=== PATIENT | male | born 1960 | race Caucasian/White ===

== ENCOUNTER 2023-03-03 13:05 | Inpatient (IN) | payer MEDICAID ==
[~2023-03-03] VITALS: Ht 167.6 cm; Wt 62.4 kg
[2023-03-03 23:00] VITALS: BP 119/69; PULSE 99; RESP 18; TEMP 98; O2SAT 97
[2023-03-04] MEDS ORDERED: PNEUMOCOCCAL VACCINE POLYVALENT 0.5 ML SYRINGE [PPSV23] IM. ONE (03:45)
[2023-03-04 08:22] VITALS: BP 116/72; PULSE 93; RESP 17; TEMP 97.6; O2SAT 98
[2023-03-04] MEDS: THIAMINE 100 MG TABLET PO SCH ×2 (09:57→18:01)
[2023-03-04] MEDS: MULTIVITAMINS WITH MINERALS, THERAPEUTIC TABLET PO SCH (09:57)
[2023-03-04] MEDS: LevETIRAcetam 500 MG TABLET PO SCH ×2 (09:57→20:46)
[2023-03-04] MEDS ORDERED: ACETAMINOPHEN 325 MG TABLET PO PRN (11:30)
[2023-03-04] MEDS ORDERED: MAG HYDROX/AL HYDROX/SIMETH ES 30 ML SUSPENSION UDCUP PO PRN (11:30)
[2023-03-04] MEDS ORDERED: MAGNESIUM HYDROXIDE SUSPENSION 30 ML UDCUP PO PRN (11:30)
[2023-03-04] MEDS ORDERED: TUBERCULIN, PURIFIED PROTEIN DERIVATIVE 5 TU/0.1 ML SYRINGE ID ONE (11:30)
[2023-03-04] MEDS ORDERED: LOPERAMIDE HCL 2 MG CAPSULE PO PRN (11:30)
[2023-03-04] MEDS ORDERED: PROMETHAZINE HCL 25 MG TABLET PO PRN (11:30)
[2023-03-04] MEDS: OLANZapine 5 MG RAPDIS TABLET PO PRN (18:01)
[2023-03-04] MEDS: OLANZapine 5 MG RAPDIS TABLET PO SCH (20:46)
[2023-03-04] MEDS: MIRTAZAPINE 15 MG TABLET PO SCH (20:47)
[2023-03-04] MEDS: MELATONIN 5 MG TABLET PO SCH (20:47)
[2023-03-04 21:02] VITALS: BP 132/75; PULSE 100; RESP 18; TEMP 98.7; O2SAT 95
[2023-03-04 21:05] VITALS: TEMP 98.7
[2023-03-04 22:05] VITALS: BP 132/75; PULSE 100; RESP 18; TEMP 98.7; O2SAT 95
[2023-03-05 08:09] VITALS: BP 106/64; PULSE 66; RESP 17; TEMP 98.3; O2SAT 98
[2023-03-05 08:15] VITALS: BP 125/76; PULSE 95; RESP 15; TEMP 98.5; O2SAT 96
[2023-03-05 08:53] LABS: BASOPHILS % (AUTO) 0.2 % (0.0-2.0); EOSINOPHILS % (AUTO) 2.1 % (1.0-6.0); HEMATOCRIT 38.7 % (41-53); LYMPHOCYTES # (AUTO) 1.4 K/uL (1.0-4.8); LYMPHOCYTES % (AUTO) 33.3 % (22.0-44.0); MEAN CORPUSCULAR HEMOGLOBIN 32.7 pg (26.0-34.0); MEAN CORPUSCULAR HGB CONC 33.5 G/dL (31.0-37.0); MEAN CORPUSCULAR VOLUME 98 fL (80-100); MONOCYTES # (AUTO) 0.6 K/uL (0.1-1.0); MONOCYTES % (AUTO) 15.4 % (2.0-9.0); NEUTROPHILS # (AUTO) 2.1 K/uL (1.8-7.7); PLATELET COUNT (AUTO) 214 K/uL (150-450); RED BLOOD CELL COUNT(AUTO) 3.96 MIL/uL (4.50-5.90); RED CELL DISTRIBUTION WIDTH 14.2 % (11.5-14.5); WHITE BLOOD COUNT (AUTO) 4.2 K/uL (4.5-11.0)
[2023-03-05] MEDS ORDERED: MULTIVITAMINS WITH MINERALS, THERAPEUTIC TABLET PO SCH (09:00)
[2023-03-05 09:03] LABS: HEMOGLOBIN A1C 5.3 % (3.8-5.6)
[2023-03-05 09:24] LABS: ALANINE AMINOTRANSFERASE 71 U/L (12-78); ALBUMIN 2.6 g/dL (3.4-5.0); ALKALINE PHOSPHATASE 95 U/L (46-116); ANION GAP 6 mmol/L (8-16); ASPARTATE AMINOTRANSFERASE 65 U/L (15-37); BILIRUBIN,TOTAL 0.3 mg/dL (0.1-1.0); CALCIUM, TOTAL 8.4 mg/dL (8.8-10.5); CARBON DIOXIDE 28 mmol/L (22-29); CHLORIDE 104 mmol/L (98-107); CHOL/HDL RATIO 2.1 (4.2-7.3); CHOLESTEROL 127 mg/dL (131-200); CREATININE 0.46 mg/dL (0.60-1.30); FREE T4 (FREE THYROXINE) 0.99 ng/dL (0.76-1.46); GLOMERULAR FILTR. RATE CALC > 60 mL/min (>60); GLUCOSE,RANDOM 108 mg/dL (70-110); HDL CHOLESTEROL 60 mg/dL (40-60); LDL CHOL (CALC.) 57 mg/dL (0-130); POTASSIUM 3.8 mmol/L (3.5-5.1); SODIUM SERUM 138 mmol/L (136-145); THYROID STIMULATING HORMONE 4.18 uIU/mL (0.36-3.74); TOTAL PROTEIN, SERUM 6.6 g/dL (6.4-8.2); TRIGLYCERIDES 51 mg/dL (15-150); UREA NITROGEN, BLOOD 20 mg/dL (7-18)
[2023-03-05] MEDS: NALTREXONE HCL 50 MG TABLET PO SCH (09:59)
[2023-03-05] MEDS: THIAMINE 100 MG TABLET PO SCH ×3 (09:59→17:09)
[2023-03-05] MEDS: MULTIVITAMINS WITH MINERALS, THERAPEUTIC TABLET PO SCH (09:59)
[2023-03-05] MEDS: LevETIRAcetam 500 MG TABLET PO SCH ×2 (10:00→20:41)
[2023-03-05] MEDS: OMEGA-3/DHA/EPA/FISH OIL 1,000 MG CAPSULE PO SCH (10:00)
[2023-03-05] MEDS: FOLIC ACID 1 MG TABLET PO SCH (10:00)
[2023-03-05] MEDS: LORazepam 2 MG TABLET PO PRN (17:09)
[2023-03-05 20:05] VITALS: BP 124/82; PULSE 86; RESP 18; TEMP 97.6; O2SAT 97
[2023-03-05] MEDS: MELATONIN 5 MG TABLET PO SCH (20:41)
[2023-03-05] MEDS: MIRTAZAPINE 15 MG TABLET PO SCH (20:42)
[2023-03-05] MEDS: OLANZapine 5 MG RAPDIS TABLET PO SCH (20:42)
[2023-03-05] MEDS: ZOLPIDEM TARTRATE 10 MG TABLET PO PRN (20:43)
[2023-03-06 08:15] VITALS: BP 88/59; PULSE 66; RESP 18; TEMP 98; O2SAT 98
[2023-03-06] MEDS: OMEGA-3/DHA/EPA/FISH OIL 1,000 MG CAPSULE PO SCH (08:15)
[2023-03-06] MEDS: FOLIC ACID 1 MG TABLET PO SCH (08:16)
[2023-03-06] MEDS: LevETIRAcetam 500 MG TABLET PO SCH ×2 (08:16→20:09)
[2023-03-06] MEDS: MULTIVITAMINS WITH MINERALS, THERAPEUTIC TABLET PO SCH (08:16)
[2023-03-06] MEDS: THIAMINE 100 MG TABLET PO SCH ×2 (08:16→16:52)
[2023-03-06] MEDS: NALTREXONE HCL 50 MG TABLET PO SCH (08:16)
[2023-03-06] MEDS: HydrOXYzine PAMOATE 50 MG CAPSULE PO PRN (16:53)
[2023-03-06] MEDS: OLANZapine 5 MG RAPDIS TABLET PO PRN (16:53)
[2023-03-06] MEDS: OLANZapine 5 MG RAPDIS TABLET PO SCH (20:09)
[2023-03-06] MEDS: MIRTAZAPINE 15 MG TABLET PO SCH (20:09)
[2023-03-06 20:12] VITALS: BP 120/81; PULSE 88; RESP 18; TEMP 97.6; O2SAT 100
[2023-03-06] MEDS: MELATONIN 5 MG TABLET PO SCH (20:18)
[2023-03-06] MEDS: LORazepam 2 MG TABLET PO PRN (20:18)
[2023-03-07] MEDS: THIAMINE 100 MG TABLET PO SCH ×2 (08:06→16:21)
[2023-03-07] MEDS: MULTIVITAMINS WITH MINERALS, THERAPEUTIC TABLET PO SCH (08:06)
[2023-03-07] MEDS: NALTREXONE HCL 50 MG TABLET PO SCH (08:06)
[2023-03-07] MEDS: OMEGA-3/DHA/EPA/FISH OIL 1,000 MG CAPSULE PO SCH (08:06)
[2023-03-07] MEDS: FOLIC ACID 1 MG TABLET PO SCH (08:06)
[2023-03-07] MEDS: LevETIRAcetam 500 MG TABLET PO SCH ×2 (08:06→20:43)
[2023-03-07 08:24] VITALS: BP 116/78; PULSE 86; RESP 16; TEMP 97.8; O2SAT 99
[2023-03-07] MEDS: LORazepam 2 MG TABLET PO PRN (16:21)
[2023-03-07 20:14] VITALS: BP 123/75; PULSE 90; RESP 18; TEMP 98.4; O2SAT 100
[2023-03-07] MEDS: MELATONIN 5 MG TABLET PO SCH (20:43)
[2023-03-07] MEDS: MIRTAZAPINE 15 MG TABLET PO SCH (20:43)
[2023-03-07] MEDS: OLANZapine 5 MG RAPDIS TABLET PO SCH (20:43)
[2023-03-07] MEDS: ZOLPIDEM TARTRATE 10 MG TABLET PO PRN (20:43)
[2023-03-08 08:12] VITALS: BP 124/60; PULSE 70; RESP 18; TEMP 97.6; O2SAT 92
[2023-03-08] MEDS: MULTIVITAMINS WITH MINERALS, THERAPEUTIC TABLET PO SCH (08:36)
[2023-03-08] MEDS: LevETIRAcetam 500 MG TABLET PO SCH ×2 (08:36→20:32)
[2023-03-08] MEDS: FOLIC ACID 1 MG TABLET PO SCH (08:36)
[2023-03-08] MEDS: OMEGA-3/DHA/EPA/FISH OIL 1,000 MG CAPSULE PO SCH (08:36)
[2023-03-08] MEDS: NALTREXONE HCL 50 MG TABLET PO SCH (08:36)
[2023-03-08] MEDS: THIAMINE 100 MG TABLET PO SCH ×2 (08:36→16:28)
[2023-03-08] MEDS ORDERED: PALIPERIDONE PALMITATE 234 MG/1.5 ML SYRINGE IM ONE (14:00)
[2023-03-08] MEDS: HydrOXYzine PAMOATE 50 MG CAPSULE PO PRN (16:28)
[2023-03-08] MEDS: BENZTROPINE MESYLATE 2 MG TABLET PO SCH (16:28)
[2023-03-08] MEDS: LORazepam 2 MG TABLET PO PRN (16:28)
[2023-03-08 18:16] LABS: GLUCOMETER DEV NAME(LOC) POC.BV; POC SARS-COV2 AG, FIA NEGATIVE (NEGATIVE)
[2023-03-08 20:14] VITALS: BP 118/78; PULSE 110; RESP 18; TEMP 98.2; O2SAT 97
[2023-03-08] MEDS: MELATONIN 5 MG TABLET PO SCH (20:32)
[2023-03-08] MEDS: MIRTAZAPINE 30 MG TABLET PO SCH (20:32)
[2023-03-08] MEDS: ZOLPIDEM TARTRATE 10 MG TABLET PO PRN (20:33)
[2023-03-08] MEDS ORDERED: HALOPERIDOL 10 MG TABLET PO SCH (21:00)
[2023-03-09] VITALS (7 sets, daily range): BP systolic 107–108; BP diastolic 63–67; PULSE 82–93; RESP 17–18; TEMP 97.5–98.7; O2SAT 97–98
[2023-03-09] MEDS: FOLIC ACID 1 MG TABLET PO SCH (09:00)
[2023-03-09] MEDS: MULTIVITAMINS WITH MINERALS, THERAPEUTIC TABLET PO SCH (09:00)
[2023-03-09] MEDS: OMEGA-3/DHA/EPA/FISH OIL 1,000 MG CAPSULE PO SCH (09:00)
[2023-03-09] MEDS: THIAMINE 100 MG TABLET PO SCH ×2 (09:00→16:32)
[2023-03-09] MEDS: NALTREXONE HCL 50 MG TABLET PO SCH (09:00)
[2023-03-09] MEDS: LevETIRAcetam 500 MG TABLET PO SCH ×2 (09:00→20:29)
[2023-03-09] MEDS: BENZTROPINE MESYLATE 2 MG TABLET PO SCH ×3 (09:00→16:32)
[2023-03-09] MEDS: MIRTAZAPINE 30 MG TABLET PO SCH (20:29)
[2023-03-09] MEDS: MELATONIN 5 MG TABLET PO SCH (20:29)
[2023-03-09] MEDS: LORazepam 2 MG TABLET PO PRN (20:30)
[2023-03-09] MEDS ORDERED: HALOPERIDOL 10 MG TABLET PO SCH (21:00)
[2023-03-10] VITALS (7 sets, daily range): BP systolic 105–109; BP diastolic 62–72; PULSE 84–101; RESP 17–20; TEMP 97.6–99.6; O2SAT 96–100
[2023-03-10] MEDS: THIAMINE 100 MG TABLET PO SCH ×2 (09:00→17:11)
[2023-03-10] MEDS: FOLIC ACID 1 MG TABLET PO SCH (09:00)
[2023-03-10] MEDS: OMEGA-3/DHA/EPA/FISH OIL 1,000 MG CAPSULE PO SCH (09:00)
[2023-03-10] MEDS: BENZTROPINE MESYLATE 2 MG TABLET PO SCH ×3 (09:00→17:11)
[2023-03-10] MEDS: NALTREXONE HCL 50 MG TABLET PO SCH (09:00)
[2023-03-10] MEDS: LevETIRAcetam 500 MG TABLET PO SCH ×2 (09:00→20:25)
[2023-03-10] MEDS: MULTIVITAMINS WITH MINERALS, THERAPEUTIC TABLET PO SCH (09:00)
[2023-03-10] MEDS: LORazepam 2 MG TABLET PO PRN (17:11)
[2023-03-10] MEDS: MELATONIN 5 MG TABLET PO SCH (20:25)
[2023-03-10] MEDS: HALOPERIDOL 10 MG TABLET PO SCH (20:25)
[2023-03-10] MEDS: MIRTAZAPINE 30 MG TABLET PO SCH (20:25)
[2023-03-10] MEDS: ZOLPIDEM TARTRATE 10 MG TABLET PO PRN (20:27)
[2023-03-10] MEDS ORDERED: HALOPERIDOL DECANOATE 100 MG/ML VIAL IM ONE (21:30)
[2023-03-11] VITALS (8 sets, daily range): BP systolic 113–115; BP diastolic 64–65; PULSE 76–107; RESP 17–18; TEMP 98–98.6; O2SAT 97–99
[2023-03-11] MEDS: MULTIVITAMINS WITH MINERALS, THERAPEUTIC TABLET PO SCH (08:35)
[2023-03-11] MEDS: OMEGA-3/DHA/EPA/FISH OIL 1,000 MG CAPSULE PO SCH (08:35)
[2023-03-11] MEDS: LevETIRAcetam 500 MG TABLET PO SCH ×2 (08:35→20:43)
[2023-03-11] MEDS: THIAMINE 100 MG TABLET PO SCH ×2 (08:35→17:11)
[2023-03-11] MEDS: NALTREXONE HCL 50 MG TABLET PO SCH (08:35)
[2023-03-11] MEDS: BENZTROPINE MESYLATE 2 MG TABLET PO SCH ×3 (08:36→17:11)
[2023-03-11] MEDS: LORazepam 2 MG TABLET PO PRN (08:36)
[2023-03-11] MEDS: FOLIC ACID 1 MG TABLET PO SCH (08:36)
[2023-03-11 11:10] LABS: GLUCOMETER DEV NAME(LOC) POC.BV; POC SARS-COV2 AG, FIA NEGATIVE (NEGATIVE)
[2023-03-11] MEDS: HALOPERIDOL 10 MG TABLET PO SCH (20:43)
[2023-03-11] MEDS: MIRTAZAPINE 30 MG TABLET PO SCH (20:43)
[2023-03-11] MEDS: ZOLPIDEM TARTRATE 10 MG TABLET PO PRN (20:45)
[2023-03-11] MEDS: MELATONIN 5 MG TABLET PO SCH (20:45)
[2023-03-12] VITALS (8 sets, daily range): BP systolic 102–116; BP diastolic 58–83; PULSE 86–90; RESP 16–18; TEMP 97.9–98.4; O2SAT 98
[2023-03-12] MEDS ORDERED: PALIPERIDONE PALMITATE 156 MG/ML SYRINGE IM ONE (09:00)
[2023-03-12] MEDS: BENZTROPINE MESYLATE 2 MG TABLET PO SCH ×3 (09:10→16:27)
[2023-03-12] MEDS: THIAMINE 100 MG TABLET PO SCH ×2 (09:10→16:27)
[2023-03-12] MEDS: FOLIC ACID 1 MG TABLET PO SCH (09:11)
[2023-03-12] MEDS: NALTREXONE HCL 50 MG TABLET PO SCH (09:11)
[2023-03-12] MEDS: OMEGA-3/DHA/EPA/FISH OIL 1,000 MG CAPSULE PO SCH (09:11)
[2023-03-12] MEDS: MULTIVITAMINS WITH MINERALS, THERAPEUTIC TABLET PO SCH (09:11)
[2023-03-12] MEDS: LevETIRAcetam 500 MG TABLET PO SCH ×2 (09:11→20:50)
[2023-03-12] MEDS: LORazepam 2 MG TABLET PO PRN (12:27)
[2023-03-12] MEDS: MIRTAZAPINE 30 MG TABLET PO SCH (20:51)
[2023-03-12] MEDS: HALOPERIDOL 10 MG TABLET PO SCH (20:51)
[2023-03-12] MEDS: MELATONIN 5 MG TABLET PO SCH (20:51)
[2023-03-13 03:38] VITALS: TEMP 98
[2023-03-13 06:04] VITALS: TEMP 98
[2023-03-13] MEDS: LevETIRAcetam 500 MG TABLET PO SCH ×2 (08:23→21:04)
[2023-03-13] MEDS: FOLIC ACID 1 MG TABLET PO SCH (08:23)
[2023-03-13] MEDS: OMEGA-3/DHA/EPA/FISH OIL 1,000 MG CAPSULE PO SCH (08:23)
[2023-03-13] MEDS: MULTIVITAMINS WITH MINERALS, THERAPEUTIC TABLET PO SCH (08:24)
[2023-03-13] MEDS: THIAMINE 100 MG TABLET PO SCH ×2 (08:24→17:00)
[2023-03-13] MEDS: BENZTROPINE MESYLATE 2 MG TABLET PO SCH ×3 (08:24→17:00)
[2023-03-13] MEDS: NALTREXONE HCL 50 MG TABLET PO SCH (08:42)
[2023-03-13 10:33] VITALS: RESP 16
[2023-03-13 17:25] VITALS: TEMP 97
[2023-03-13 18:28] VITALS: TEMP 98
[2023-03-13 20:57] VITALS: RESP 18; TEMP 98
[2023-03-13] MEDS: MELATONIN 5 MG TABLET PO SCH (21:04)
[2023-03-13] MEDS: HALOPERIDOL 10 MG TABLET PO SCH (21:04)
[2023-03-13] MEDS: MIRTAZAPINE 30 MG TABLET PO SCH (21:05)
[2023-03-14] VITALS (8 sets, daily range): BP systolic 109–126; BP diastolic 69–71; PULSE 86; RESP 18; TEMP 97.7–98; O2SAT 94–97
[2023-03-14] MEDS: NALTREXONE HCL 50 MG TABLET PO SCH (08:37)
[2023-03-14] MEDS: MULTIVITAMINS WITH MINERALS, THERAPEUTIC TABLET PO SCH (08:37)
[2023-03-14] MEDS: OMEGA-3/DHA/EPA/FISH OIL 1,000 MG CAPSULE PO SCH (08:37)
[2023-03-14] MEDS: THIAMINE 100 MG TABLET PO SCH (08:37)
[2023-03-14] MEDS: FOLIC ACID 1 MG TABLET PO SCH (08:38)
[2023-03-14] MEDS: LORazepam 2 MG TABLET PO PRN (08:38)
[2023-03-14] MEDS: BENZTROPINE MESYLATE 2 MG TABLET PO SCH ×3 (08:38→16:48)
[2023-03-14] MEDS: LevETIRAcetam 500 MG TABLET PO SCH ×2 (08:38→21:23)
[2023-03-14] MEDS: GuaiFENesin/D-METHORPHAN [SUGAR-FREE] 200-20MG/10 ML SYRUP UDCUP PO PRN (17:52)
[2023-03-14] MEDS: MELATONIN 5 MG TABLET PO SCH (21:23)
[2023-03-14] MEDS: MIRTAZAPINE 30 MG TABLET PO SCH (21:23)
[2023-03-14] MEDS: HALOPERIDOL 10 MG TABLET PO SCH (21:23)
[2023-03-15 02:03] VITALS: TEMP 98.1
[2023-03-15 06:04] VITALS: TEMP 97.8
[2023-03-15] MEDS: NALTREXONE HCL 50 MG TABLET PO SCH ×2 (08:11→08:38)
[2023-03-15] MEDS: BENZTROPINE MESYLATE 2 MG TABLET PO SCH ×4 (08:11→16:10)
[2023-03-15] MEDS: LevETIRAcetam 500 MG TABLET PO SCH ×3 (08:11→20:13)
[2023-03-15] MEDS: OMEGA-3/DHA/EPA/FISH OIL 1,000 MG CAPSULE PO SCH ×2 (08:11→08:38)
[2023-03-15] MEDS: MULTIVITAMINS WITH MINERALS, THERAPEUTIC TABLET PO SCH ×2 (08:11→08:38)
[2023-03-15 08:43] VITALS: BP 121/72; PULSE 100; RESP 17; TEMP 98; O2SAT 92
[2023-03-15 13:56] VITALS: TEMP 97.6
[2023-03-15 20:08] VITALS: BP 134/74; PULSE 100; RESP 18; TEMP 97.6; O2SAT 96
[2023-03-15] MEDS: HALOPERIDOL 10 MG TABLET PO SCH (20:13)
[2023-03-15] MEDS: MELATONIN 5 MG TABLET PO SCH (20:13)
[2023-03-15] MEDS: MIRTAZAPINE 30 MG TABLET PO SCH (20:13)
[2023-03-16 08:35] VITALS: BP 113/70; PULSE 97; RESP 17; TEMP 98.3; O2SAT 93
[2023-03-16] MEDS: LevETIRAcetam 500 MG TABLET PO SCH ×2 (09:00→21:00)
[2023-03-16] MEDS: BENZTROPINE MESYLATE 2 MG TABLET PO SCH ×3 (09:00→17:24)
[2023-03-16] MEDS: OMEGA-3/DHA/EPA/FISH OIL 1,000 MG CAPSULE PO SCH (09:00)
[2023-03-16] MEDS: NALTREXONE HCL 50 MG TABLET PO SCH (09:00)
[2023-03-16] MEDS: MULTIVITAMINS WITH MINERALS, THERAPEUTIC TABLET PO SCH (09:00)
[2023-03-16] MEDS ORDERED: NALT50TA PO (12:20)
[2023-03-16] MEDS ORDERED: HALO10TA21 PO (12:20)
[2023-03-16] MEDS ORDERED: BENZ2TAB71 PO (12:20)
[2023-03-16] MEDS ORDERED: MELA5TAB40 PO (12:20)
[2023-03-16] MEDS ORDERED: LEVE500T8 PO (12:20)
[2023-03-16] MEDS ORDERED: OMEG-135 PO (12:20)
[2023-03-16] MEDS: CEPHALEXIN MONOHYDRATE 500 MG CAPSULE PO SCH ×3 (12:38→21:00)
[2023-03-16 20:08] VITALS: BP 129/76; PULSE 80; RESP 18; TEMP 98; O2SAT 97
[2023-03-16] MEDS: MELATONIN 5 MG TABLET PO SCH (21:00)
[2023-03-16] MEDS: MIRTAZAPINE 30 MG TABLET PO SCH (21:00)
[2023-03-16] MEDS: HALOPERIDOL 10 MG TABLET PO SCH (21:00)
[2023-03-17 08:11] VITALS: BP 118/68; PULSE 91; RESP 17; TEMP 98.7; O2SAT 100
[2023-03-17] MEDS: CEPHALEXIN MONOHYDRATE 500 MG CAPSULE PO SCH ×4 (09:00→20:40)
[2023-03-17] MEDS: NALTREXONE HCL 50 MG TABLET PO SCH (09:00)
[2023-03-17] MEDS: LevETIRAcetam 500 MG TABLET PO SCH ×2 (09:00→20:40)
[2023-03-17] MEDS: MULTIVITAMINS WITH MINERALS, THERAPEUTIC TABLET PO SCH (09:00)
[2023-03-17] MEDS: OMEGA-3/DHA/EPA/FISH OIL 1,000 MG CAPSULE PO SCH (09:00)
[2023-03-17] MEDS: BENZTROPINE MESYLATE 2 MG TABLET PO SCH ×3 (09:00→17:07)
[2023-03-17 20:15] VITALS: BP 106/67; PULSE 113; RESP 18; TEMP 98.1; O2SAT 97
[2023-03-17] MEDS: MELATONIN 5 MG TABLET PO SCH (20:39)
[2023-03-17] MEDS: HALOPERIDOL 10 MG TABLET PO SCH (20:39)
[2023-03-17] MEDS: MIRTAZAPINE 30 MG TABLET PO SCH (20:40)
[2023-03-18] MEDS: OMEGA-3/DHA/EPA/FISH OIL 1,000 MG CAPSULE PO SCH ×2 (08:15→08:53)
[2023-03-18] MEDS: LevETIRAcetam 500 MG TABLET PO SCH ×3 (08:15→20:20)
[2023-03-18] MEDS: NALTREXONE HCL 50 MG TABLET PO SCH ×2 (08:15→08:53)
[2023-03-18] MEDS: CEPHALEXIN MONOHYDRATE 500 MG CAPSULE PO SCH ×4 (08:15→20:20)
[2023-03-18] MEDS: BENZTROPINE MESYLATE 2 MG TABLET PO SCH ×4 (08:15→16:24)
[2023-03-18] MEDS: MULTIVITAMINS WITH MINERALS, THERAPEUTIC TABLET PO SCH ×2 (08:15→08:53)
[2023-03-18 08:26] VITALS: BP 108/69; PULSE 88; RESP 17; TEMP 98; O2SAT 95
[2023-03-18] MEDS: MIRTAZAPINE 30 MG TABLET PO SCH (20:20)
[2023-03-18] MEDS: MELATONIN 5 MG TABLET PO SCH (20:20)
[2023-03-18] MEDS: HALOPERIDOL 10 MG TABLET PO SCH (20:21)
[2023-03-18 20:39] VITALS: BP 122/62; PULSE 93; RESP 18; TEMP 98.2; O2SAT 98
[2023-03-19 08:06] VITALS: BP 113/60; PULSE 80; RESP 17; TEMP 97.6; O2SAT 95
[2023-03-19] MEDS: CEPHALEXIN MONOHYDRATE 500 MG CAPSULE PO SCH ×4 (08:06→20:23)
[2023-03-19] MEDS: MULTIVITAMINS WITH MINERALS, THERAPEUTIC TABLET PO SCH (08:06)
[2023-03-19] MEDS: OMEGA-3/DHA/EPA/FISH OIL 1,000 MG CAPSULE PO SCH (08:06)
[2023-03-19] MEDS: NALTREXONE HCL 50 MG TABLET PO SCH (08:06)
[2023-03-19] MEDS: LevETIRAcetam 500 MG TABLET PO SCH ×2 (08:06→20:22)
[2023-03-19] MEDS: BENZTROPINE MESYLATE 2 MG TABLET PO SCH ×3 (09:00→16:53)
[2023-03-19 20:11] VITALS: BP 104/60; PULSE 83; RESP 18; TEMP 98; O2SAT 97
[2023-03-19] MEDS: HALOPERIDOL 10 MG TABLET PO SCH (20:22)
[2023-03-19] MEDS: MIRTAZAPINE 30 MG TABLET PO SCH (20:23)
[2023-03-19] MEDS: MELATONIN 5 MG TABLET PO SCH (20:23)
[2023-03-19] MEDS: LORazepam 2 MG TABLET PO PRN (20:24)
[2023-03-20 08:17] VITALS: BP 114/73; PULSE 70; RESP 17; TEMP 97.5; O2SAT 96
[2023-03-20] MEDS: LevETIRAcetam 500 MG TABLET PO SCH ×2 (09:00→20:10)
[2023-03-20] MEDS: MULTIVITAMINS WITH MINERALS, THERAPEUTIC TABLET PO SCH (09:00)
[2023-03-20] MEDS: NALTREXONE HCL 50 MG TABLET PO SCH (09:00)
[2023-03-20] MEDS: CEPHALEXIN MONOHYDRATE 500 MG CAPSULE PO SCH ×4 (09:00→20:10)
[2023-03-20] MEDS: OMEGA-3/DHA/EPA/FISH OIL 1,000 MG CAPSULE PO SCH (09:00)
[2023-03-20] MEDS: BENZTROPINE MESYLATE 2 MG TABLET PO SCH ×3 (09:00→16:52)
[2023-03-20] MEDS: GuaiFENesin/D-METHORPHAN [SUGAR-FREE] 200-20MG/10 ML SYRUP UDCUP PO PRN (17:33)
[2023-03-20 17:34] VITALS: RESP 18
[2023-03-20 18:24] VITALS: RESP 18
[2023-03-20 18:26] LABS: GLUCOMETER DEV NAME(LOC) POC.BV; POC SARS-COV2 AG, FIA NEGATIVE (NEGATIVE)
[2023-03-20] MEDS: HALOPERIDOL 10 MG TABLET PO SCH (20:10)
[2023-03-20] MEDS: MIRTAZAPINE 30 MG TABLET PO SCH (20:10)
[2023-03-20] MEDS: MELATONIN 5 MG TABLET PO SCH (20:10)
[2023-03-20 20:15] VITALS: BP 115/67; PULSE 80; RESP 18; TEMP 97.6; O2SAT 99
[2023-03-21] VITALS (8 sets, daily range): BP systolic 104–140; BP diastolic 62–84; PULSE 68–104; RESP 16–18; TEMP 97–98; O2SAT 93–100
[2023-03-21] MEDS: OMEGA-3/DHA/EPA/FISH OIL 1,000 MG CAPSULE PO SCH (08:21)
[2023-03-21] MEDS: MULTIVITAMINS WITH MINERALS, THERAPEUTIC TABLET PO SCH (08:21)
[2023-03-21] MEDS: CEPHALEXIN MONOHYDRATE 500 MG CAPSULE PO SCH (08:21)
[2023-03-21] MEDS: LevETIRAcetam 500 MG TABLET PO SCH ×2 (08:21→21:06)
[2023-03-21] MEDS: BENZTROPINE MESYLATE 2 MG TABLET PO SCH ×3 (08:21→16:55)
[2023-03-21] MEDS: NALTREXONE HCL 50 MG TABLET PO SCH (08:21)
[2023-03-21] MEDS: LORazepam 2 MG TABLET PO PRN (16:55)
[2023-03-21] MEDS: HALOPERIDOL 5 MG TABLET PO PRN (16:55)
[2023-03-21] MEDS: HALOPERIDOL 10 MG TABLET PO SCH (21:05)
[2023-03-21] MEDS: MIRTAZAPINE 30 MG TABLET PO SCH (21:06)
[2023-03-21] MEDS: MELATONIN 5 MG TABLET PO SCH (21:06)
[2023-03-22] MEDS: ZOLPIDEM TARTRATE 10 MG TABLET PO PRN (00:53)
[2023-03-22] MEDS: LORazepam 2 MG TABLET PO PRN (02:23)
[2023-03-22 08:38] VITALS: BP 126/85; PULSE 76; RESP 17; TEMP 99; O2SAT 98
[2023-03-22] MEDS: MULTIVITAMINS WITH MINERALS, THERAPEUTIC TABLET PO SCH (08:39)
[2023-03-22] MEDS: NALTREXONE HCL 50 MG TABLET PO SCH (08:39)
[2023-03-22] MEDS: LevETIRAcetam 500 MG TABLET PO SCH ×2 (08:39→20:02)
[2023-03-22] MEDS: OMEGA-3/DHA/EPA/FISH OIL 1,000 MG CAPSULE PO SCH (08:39)
[2023-03-22] MEDS: BENZTROPINE MESYLATE 1 MG TABLET PO SCH ×3 (08:40→16:07)
[2023-03-22] MEDS: AMOX TR/POT CLAV 875 MG/125 MG TABLET PO SCH (16:07)
[2023-03-22] MEDS ORDERED: DiphenhydrAMINE HCL 50 MG/ML VIAL IM ONE (16:45)
[2023-03-22] MEDS ORDERED: LORazepam 2 MG/ML VIAL IM ONE (16:45)
[2023-03-22] MEDS ORDERED: HALOPERIDOL LACTATE 5 MG/ML VIAL IM ONE (16:45)
[2023-03-22] MEDS: BENZTROPINE MESYLATE 0.5 MG TABLET PO SCH (17:00)
[2023-03-22] MEDS: MIRTAZAPINE 30 MG TABLET PO SCH (20:02)
[2023-03-22] MEDS: HALOPERIDOL 10 MG TABLET PO SCH (20:02)
[2023-03-22] MEDS: MELATONIN 5 MG TABLET PO SCH (20:03)
[2023-03-22 21:57] VITALS: BP 122/73; PULSE 103; RESP 18; TEMP 97.7; O2SAT 99
[2023-03-23] MEDS: ZOLPIDEM TARTRATE 10 MG TABLET PO PRN ×2 (02:09→23:55)
[2023-03-23 08:32] VITALS: BP 136/82; PULSE 100; RESP 20; TEMP 97.5; O2SAT 98
[2023-03-23] MEDS: BENZTROPINE MESYLATE 0.5 MG TABLET PO SCH ×3 (09:37→17:10)
[2023-03-23] MEDS: AMOX TR/POT CLAV 875 MG/125 MG TABLET PO SCH ×2 (09:38→17:10)
[2023-03-23] MEDS: NALTREXONE HCL 50 MG TABLET PO SCH (09:39)
[2023-03-23] MEDS: LevETIRAcetam 500 MG TABLET PO SCH ×2 (09:39→20:11)
[2023-03-23] MEDS: MULTIVITAMINS WITH MINERALS, THERAPEUTIC TABLET PO SCH (09:39)
[2023-03-23] MEDS: OMEGA-3/DHA/EPA/FISH OIL 1,000 MG CAPSULE PO SCH (09:39)
[2023-03-23] MEDS: HALOPERIDOL 5 MG TABLET PO PRN (13:00)
[2023-03-23] MEDS: LORazepam 2 MG TABLET PO PRN (13:00)
[2023-03-23] MEDS: HALOPERIDOL 10 MG TABLET PO SCH (20:11)
[2023-03-23] MEDS: MIRTAZAPINE 30 MG TABLET PO SCH (20:11)
[2023-03-23] MEDS: MELATONIN 5 MG TABLET PO SCH (20:11)
[2023-03-23 22:12] VITALS: BP 123/81; PULSE 83; RESP 18; TEMP 97.9; O2SAT 96
[2023-03-24] MEDS: LevETIRAcetam 500 MG TABLET PO SCH ×2 (08:18→20:20)
[2023-03-24] MEDS: OMEGA-3/DHA/EPA/FISH OIL 1,000 MG CAPSULE PO SCH (08:19)
[2023-03-24] MEDS: AMOX TR/POT CLAV 875 MG/125 MG TABLET PO SCH ×2 (08:19→17:06)
[2023-03-24] MEDS: MULTIVITAMINS WITH MINERALS, THERAPEUTIC TABLET PO SCH (08:19)
[2023-03-24] MEDS: BENZTROPINE MESYLATE 0.5 MG TABLET PO SCH ×2 (08:19→13:02)
[2023-03-24] MEDS: NALTREXONE HCL 50 MG TABLET PO SCH (08:19)
[2023-03-24] MEDS ORDERED: HALOPERIDOL DECANOATE 100 MG/ML VIAL IM SCH (09:00)
[2023-03-24 09:31] VITALS: BP 139/86; PULSE 96; RESP 18; TEMP 97.8; O2SAT 97
[2023-03-24 20:18] VITALS: BP 103/64; PULSE 70; RESP 18; TEMP 97.5; O2SAT 100
[2023-03-24] MEDS: MIRTAZAPINE 30 MG TABLET PO SCH (20:20)
[2023-03-24] MEDS: MELATONIN 5 MG TABLET PO SCH (20:21)
[2023-03-25] MEDS: OMEGA-3/DHA/EPA/FISH OIL 1,000 MG CAPSULE PO SCH (08:20)
[2023-03-25] MEDS: NALTREXONE HCL 50 MG TABLET PO SCH (08:20)
[2023-03-25] MEDS: MULTIVITAMINS WITH MINERALS, THERAPEUTIC TABLET PO SCH (08:20)
[2023-03-25] MEDS: LevETIRAcetam 500 MG TABLET PO SCH ×2 (08:20→21:00)
[2023-03-25] MEDS: AMOX TR/POT CLAV 875 MG/125 MG TABLET PO SCH ×2 (08:20→17:41)
[2023-03-25 08:47] VITALS: BP 114/89; PULSE 96; RESP 17; TEMP 97.3; O2SAT 99
[2023-03-25 20:49] VITALS: BP 118/72; PULSE 75; RESP 18; TEMP 98; O2SAT 99
[2023-03-25] MEDS: MELATONIN 5 MG TABLET PO SCH (21:00)
[2023-03-25] MEDS: MIRTAZAPINE 30 MG TABLET PO SCH (21:00)
[2023-03-26] MEDS: NALTREXONE HCL 50 MG TABLET PO SCH (08:07)
[2023-03-26] MEDS: AMOX TR/POT CLAV 875 MG/125 MG TABLET PO SCH ×2 (08:07→16:46)
[2023-03-26] MEDS: MULTIVITAMINS WITH MINERALS, THERAPEUTIC TABLET PO SCH (08:07)
[2023-03-26] MEDS: OMEGA-3/DHA/EPA/FISH OIL 1,000 MG CAPSULE PO SCH (08:07)
[2023-03-26] MEDS: LevETIRAcetam 500 MG TABLET PO SCH ×2 (08:07→20:42)
[2023-03-26 09:04] VITALS: BP 103/56; PULSE 83; RESP 18; TEMP 97.1; O2SAT 96
[2023-03-26] MEDS: MELATONIN 5 MG TABLET PO SCH (20:41)
[2023-03-26] MEDS: MIRTAZAPINE 30 MG TABLET PO SCH (20:42)
[2023-03-26 20:58] VITALS: BP 101/60; PULSE 85; RESP 18; TEMP 96.9; O2SAT 98
[2023-03-27 08:30] VITALS: BP 100/65; PULSE 75; RESP 20; TEMP 97.6; O2SAT 95
[2023-03-27] MEDS: MULTIVITAMINS WITH MINERALS, THERAPEUTIC TABLET PO SCH (10:03)
[2023-03-27] MEDS: AMOX TR/POT CLAV 875 MG/125 MG TABLET PO SCH ×2 (10:03→16:47)
[2023-03-27] MEDS: OMEGA-3/DHA/EPA/FISH OIL 1,000 MG CAPSULE PO SCH (10:03)
[2023-03-27] MEDS: NALTREXONE HCL 50 MG TABLET PO SCH (10:04)
[2023-03-27] MEDS: LevETIRAcetam 500 MG TABLET PO SCH ×2 (10:04→21:21)
[2023-03-27 20:58] VITALS: BP 111/63; PULSE 70; RESP 18; TEMP 98.3; O2SAT 96
[2023-03-27] MEDS: MIRTAZAPINE 30 MG TABLET PO SCH (21:21)
[2023-03-27] MEDS: MELATONIN 5 MG TABLET PO SCH (21:21)
[2023-03-28 08:29] VITALS: BP 116/64; PULSE 69; RESP 17; TEMP 97.7; O2SAT 97
[2023-03-28] MEDS: LevETIRAcetam 500 MG TABLET PO SCH ×2 (08:42→20:35)
[2023-03-28] MEDS: NALTREXONE HCL 50 MG TABLET PO SCH (08:42)
[2023-03-28] MEDS: MULTIVITAMINS WITH MINERALS, THERAPEUTIC TABLET PO SCH (08:42)
[2023-03-28] MEDS: OMEGA-3/DHA/EPA/FISH OIL 1,000 MG CAPSULE PO SCH (08:42)
[2023-03-28 20:15] VITALS: BP 114/68; PULSE 74; RESP 18; TEMP 97.7; O2SAT 97
[2023-03-28] MEDS: MIRTAZAPINE 30 MG TABLET PO SCH (20:35)
[2023-03-28] MEDS: MELATONIN 5 MG TABLET PO SCH (20:35)
[2023-03-29] MEDS: NALTREXONE HCL 50 MG TABLET PO SCH (08:35)
[2023-03-29] MEDS: LevETIRAcetam 500 MG TABLET PO SCH ×2 (08:35→20:32)
[2023-03-29] MEDS: MULTIVITAMINS WITH MINERALS, THERAPEUTIC TABLET PO SCH (08:35)
[2023-03-29] MEDS: OMEGA-3/DHA/EPA/FISH OIL 1,000 MG CAPSULE PO SCH (08:36)
[2023-03-29 08:44] VITALS: BP 120/77; PULSE 88; RESP 17; TEMP 97.5; O2SAT 99
[2023-03-29] MEDS: MIRTAZAPINE 30 MG TABLET PO SCH (20:33)
[2023-03-29] MEDS: MELATONIN 5 MG TABLET PO SCH (20:33)
[2023-03-29 20:34] VITALS: BP 103/77; PULSE 77; RESP 17; TEMP 97.7; O2SAT 98
[2023-03-30] MEDS: OMEGA-3/DHA/EPA/FISH OIL 1,000 MG CAPSULE PO SCH (08:01)
[2023-03-30] MEDS: MULTIVITAMINS WITH MINERALS, THERAPEUTIC TABLET PO SCH (08:01)
[2023-03-30] MEDS: NALTREXONE HCL 50 MG TABLET PO SCH (08:01)
[2023-03-30] MEDS: LevETIRAcetam 500 MG TABLET PO SCH ×2 (08:01→20:16)
[2023-03-30 08:34] VITALS: BP 106/64; PULSE 68; RESP 17; TEMP 97.7; O2SAT 98
[2023-03-30 20:16] VITALS: BP 109/65; PULSE 67; RESP 18; TEMP 97.8; O2SAT 96
[2023-03-30] MEDS: MIRTAZAPINE 30 MG TABLET PO SCH (20:16)
[2023-03-30] MEDS: MELATONIN 5 MG TABLET PO SCH (20:17)
[2023-03-31 08:34] VITALS: BP 115/73; PULSE 83; RESP 17; TEMP 97; O2SAT 95
[2023-03-31] MEDS: MULTIVITAMINS WITH MINERALS, THERAPEUTIC TABLET PO SCH (08:52)
[2023-03-31] MEDS: LevETIRAcetam 500 MG TABLET PO SCH ×2 (08:52→20:45)
[2023-03-31] MEDS: NALTREXONE HCL 50 MG TABLET PO SCH (08:52)
[2023-03-31] MEDS: OMEGA-3/DHA/EPA/FISH OIL 1,000 MG CAPSULE PO SCH (09:07)
[2023-03-31 20:24] VITALS: BP 113/66; PULSE 70; RESP 17; TEMP 97.8; O2SAT 97
[2023-03-31] MEDS: MIRTAZAPINE 30 MG TABLET PO SCH (20:45)
[2023-03-31] MEDS: MELATONIN 5 MG TABLET PO SCH (20:45)
[2023-04-01] MEDS: LevETIRAcetam 500 MG TABLET PO SCH ×2 (08:02→21:34)
[2023-04-01] MEDS: OMEGA-3/DHA/EPA/FISH OIL 1,000 MG CAPSULE PO SCH (08:02)
[2023-04-01] MEDS: NALTREXONE HCL 50 MG TABLET PO SCH (08:02)
[2023-04-01] MEDS: MULTIVITAMINS WITH MINERALS, THERAPEUTIC TABLET PO SCH (08:02)
[2023-04-01 08:45] VITALS: BP 108/62; PULSE 83; RESP 17; TEMP 97.9; O2SAT 99
[2023-04-01 20:12] VITALS: BP 119/67; PULSE 78; RESP 18; TEMP 97.6
[2023-04-01] MEDS: MELATONIN 5 MG TABLET PO SCH (21:34)
[2023-04-01] MEDS: MIRTAZAPINE 30 MG TABLET PO SCH (21:34)
[2023-04-02] MEDS: NALTREXONE HCL 50 MG TABLET PO SCH (08:18)
[2023-04-02] MEDS: MULTIVITAMINS WITH MINERALS, THERAPEUTIC TABLET PO SCH (08:18)
[2023-04-02] MEDS: LevETIRAcetam 500 MG TABLET PO SCH ×2 (08:18→20:12)
[2023-04-02] MEDS: OMEGA-3/DHA/EPA/FISH OIL 1,000 MG CAPSULE PO SCH (08:19)
[2023-04-02 09:38] VITALS: BP 116/64; PULSE 67; RESP 18; TEMP 97.5; O2SAT 96
[2023-04-02] MEDS: MIRTAZAPINE 30 MG TABLET PO SCH (20:12)
[2023-04-02] MEDS: MELATONIN 5 MG TABLET PO SCH (20:12)
[2023-04-02 20:17] VITALS: BP 108/64; PULSE 70; RESP 17; TEMP 97.7; O2SAT 96
[2023-04-03] MEDS: LevETIRAcetam 500 MG TABLET PO SCH ×2 (08:23→21:03)
[2023-04-03] MEDS: OMEGA-3/DHA/EPA/FISH OIL 1,000 MG CAPSULE PO SCH (08:23)
[2023-04-03] MEDS: NALTREXONE HCL 50 MG TABLET PO SCH (08:23)
[2023-04-03] MEDS: MULTIVITAMINS WITH MINERALS, THERAPEUTIC TABLET PO SCH (08:24)
[2023-04-03 11:14] VITALS: BP 105/63; PULSE 66; RESP 18; TEMP 97.1; O2SAT 98
[2023-04-03] MEDS: MIRTAZAPINE 30 MG TABLET PO SCH (21:03)
[2023-04-03] MEDS: MELATONIN 5 MG TABLET PO SCH (21:03)
[2023-04-04 01:48] VITALS: BP 103/71; PULSE 87; RESP 17; TEMP 97.4; O2SAT 99
[2023-04-04] MEDS: NALTREXONE HCL 50 MG TABLET PO SCH (08:28)
[2023-04-04] MEDS: OMEGA-3/DHA/EPA/FISH OIL 1,000 MG CAPSULE PO SCH (08:29)
[2023-04-04] MEDS: MULTIVITAMINS WITH MINERALS, THERAPEUTIC TABLET PO SCH (08:29)
[2023-04-04] MEDS: LevETIRAcetam 500 MG TABLET PO SCH ×2 (08:29→20:30)
[2023-04-04 10:27] VITALS: BP 114/59; PULSE 62; RESP 17; TEMP 97.7; O2SAT 97
[2023-04-04 20:20] VITALS: BP 101/60; PULSE 68; RESP 18; TEMP 97.6; O2SAT 97
[2023-04-04] MEDS: MIRTAZAPINE 30 MG TABLET PO SCH (20:29)
[2023-04-04] MEDS: MELATONIN 5 MG TABLET PO SCH (20:29)
[2023-04-05 08:26] VITALS: BP 109/59; PULSE 69; RESP 17; TEMP 97.8; O2SAT 96
[2023-04-05] MEDS: NALTREXONE HCL 50 MG TABLET PO SCH (09:19)
[2023-04-05] MEDS: OMEGA-3/DHA/EPA/FISH OIL 1,000 MG CAPSULE PO SCH (09:19)
[2023-04-05] MEDS: MULTIVITAMINS WITH MINERALS, THERAPEUTIC TABLET PO SCH (09:19)
[2023-04-05] MEDS: LevETIRAcetam 500 MG TABLET PO SCH ×2 (09:19→20:18)
[2023-04-05 20:16] VITALS: BP 132/76; PULSE 84; RESP 18; TEMP 97.8
[2023-04-05] MEDS: MIRTAZAPINE 30 MG TABLET PO SCH (20:18)
[2023-04-05] MEDS: MELATONIN 5 MG TABLET PO SCH (20:18)
[2023-04-06 08:18] VITALS: BP 106/67; PULSE 78; RESP 17; TEMP 98.9; O2SAT 98
[2023-04-06] MEDS: OMEGA-3/DHA/EPA/FISH OIL 1,000 MG CAPSULE PO SCH (08:48)
[2023-04-06] MEDS: LevETIRAcetam 500 MG TABLET PO SCH ×2 (08:49→20:16)
[2023-04-06] MEDS: NALTREXONE HCL 50 MG TABLET PO SCH (08:49)
[2023-04-06] MEDS: MULTIVITAMINS WITH MINERALS, THERAPEUTIC TABLET PO SCH (08:49)
[2023-04-06] MEDS: MIRTAZAPINE 30 MG TABLET PO SCH (20:16)
[2023-04-06] MEDS: MELATONIN 5 MG TABLET PO SCH (20:16)
[2023-04-06 20:18] VITALS: BP 122/73; PULSE 94; RESP 18; TEMP 98.2; O2SAT 98
[2023-04-07 08:23] VITALS: BP 112/59; PULSE 75; RESP 18; TEMP 97.7; O2SAT 95
[2023-04-07] MEDS: LevETIRAcetam 500 MG TABLET PO SCH ×2 (08:43→21:21)
[2023-04-07] MEDS: OMEGA-3/DHA/EPA/FISH OIL 1,000 MG CAPSULE PO SCH (08:43)
[2023-04-07] MEDS: MULTIVITAMINS WITH MINERALS, THERAPEUTIC TABLET PO SCH (08:43)
[2023-04-07] MEDS: NALTREXONE HCL 50 MG TABLET PO SCH (08:43)
[2023-04-07] MEDS ORDERED: HALOPERIDOL DECANOATE 100 MG/ML VIAL IM SCH (09:00)
[2023-04-07 20:13] VITALS: BP 114/64; PULSE 67; RESP 18; TEMP 97.5; O2SAT 98
[2023-04-07] MEDS: MELATONIN 5 MG TABLET PO SCH (21:21)
[2023-04-07] MEDS: MIRTAZAPINE 30 MG TABLET PO SCH (21:21)
[2023-04-08 08:22] VITALS: BP 108/59; PULSE 66; RESP 18; TEMP 97.8; O2SAT 95
[2023-04-08] MEDS: OMEGA-3/DHA/EPA/FISH OIL 1,000 MG CAPSULE PO SCH (09:21)
[2023-04-08] MEDS: NALTREXONE HCL 50 MG TABLET PO SCH (09:22)
[2023-04-08] MEDS: MULTIVITAMINS WITH MINERALS, THERAPEUTIC TABLET PO SCH (09:22)
[2023-04-08] MEDS: LevETIRAcetam 500 MG TABLET PO SCH ×2 (09:22→20:32)
[2023-04-08 20:21] VITALS: BP 114/59; PULSE 70; RESP 17; TEMP 97.4; O2SAT 96
[2023-04-08] MEDS: MELATONIN 5 MG TABLET PO SCH (20:32)
[2023-04-08] MEDS: MIRTAZAPINE 30 MG TABLET PO SCH (20:32)
[2023-04-09] MEDS: LevETIRAcetam 500 MG TABLET PO SCH ×2 (08:45→20:30)
[2023-04-09] MEDS: OMEGA-3/DHA/EPA/FISH OIL 1,000 MG CAPSULE PO SCH (08:45)
[2023-04-09] MEDS: MULTIVITAMINS WITH MINERALS, THERAPEUTIC TABLET PO SCH (08:46)
[2023-04-09] MEDS: NALTREXONE HCL 50 MG TABLET PO SCH (08:52)
[2023-04-09 08:57] VITALS: BP 109/64; PULSE 89; RESP 16; TEMP 97.5; O2SAT 96
[2023-04-09 17:57] VITALS: BP 120/74; PULSE 70; RESP 18; TEMP 91.9; O2SAT 92
[2023-04-09 20:21] VITALS: BP 112/74; PULSE 75; RESP 18; TEMP 97.6; O2SAT 97
[2023-04-09] MEDS: MELATONIN 5 MG TABLET PO SCH (20:31)
[2023-04-09] MEDS: MIRTAZAPINE 30 MG TABLET PO SCH (20:31)
[2023-04-10 08:16] VITALS: BP 118/78; PULSE 92; RESP 17; TEMP 97.7; O2SAT 97
[2023-04-10] MEDS: LevETIRAcetam 500 MG TABLET PO SCH ×2 (09:02→20:43)
[2023-04-10] MEDS: OMEGA-3/DHA/EPA/FISH OIL 1,000 MG CAPSULE PO SCH (09:02)
[2023-04-10] MEDS: MULTIVITAMINS WITH MINERALS, THERAPEUTIC TABLET PO SCH (09:02)
[2023-04-10] MEDS: NALTREXONE HCL 50 MG TABLET PO SCH (09:02)
[2023-04-10 20:04] VITALS: BP 113/67; PULSE 92; RESP 18; TEMP 97.8; O2SAT 99
[2023-04-10] MEDS: MELATONIN 5 MG TABLET PO SCH (20:43)
[2023-04-10] MEDS: MIRTAZAPINE 30 MG TABLET PO SCH (20:43)
[2023-04-11] MEDS: LevETIRAcetam 500 MG TABLET PO SCH (08:28)
[2023-04-11] MEDS: MULTIVITAMINS WITH MINERALS, THERAPEUTIC TABLET PO SCH (08:28)
[2023-04-11] MEDS: NALTREXONE HCL 50 MG TABLET PO SCH (08:28)
[2023-04-11] MEDS: OMEGA-3/DHA/EPA/FISH OIL 1,000 MG CAPSULE PO SCH (08:28)
[2023-04-11 08:41] VITALS: BP 117/78; PULSE 71; RESP 17; TEMP 97.9; O2SAT 95
[2023-04-11] MEDS ORDERED: HALO100V36 IM (15:52)
[2023-04-11] MEDS ORDERED: MIRT-149 PO (15:54)
== END 2023-04-11 18:05 | disposition home or self-care (01) | DRG 750 ==
LOC: B3A 21:51 → B2S 04-03 12:37
PROVIDERS: ADMIT Psychiatry & Neurology Psychiatry; ATTEND Psychiatry & Neurology Psychiatry
DX: F20.0 Paranoid schizophrenia (principal); G40.909 Epilepsy, unspecified, not intractable, without status epilepticus; F15.10 Other stimulant abuse, uncomplicated; F17.210 Nicotine dependence, cigarettes, uncomplicated; F32.9 Major depressive disorder, single episode, unspecified; Z20.822 Contact with and (suspected) exposure to COVID-19; J44.9 Chronic obstructive pulmonary disease, unspecified; Z59.01 Sheltered homelessness; Z91.199 Patient's noncompliance with other medical treatment and regimen due to unspecified reason; Z79.899 Other long term (current) drug therapy
CPT/HCPCS: 80053; 80061; 80173; 83036; 84439; 84443; 85025; 86592; 87081; 90732; J1200; J1630; J1631; J2060; Q9967

== ENCOUNTER 2023-03-22 09:42 | Emergency (ER) | payer MEDICAID ==
[~2023-03-22] VITALS: Ht 172.7 cm; Wt 68.2 kg
[~2023-03-22 09:42] MED LIST: BENZ2TAB71 PO; HALO10TA21 PO; LEVE500T8 PO; MELA5TAB40 PO; NALT50TA PO; OMEG-135 PO
[2023-03-22] MEDS ORDERED: SODIUM CHLORIDE 0.9% 1,000 ML IV ONE (10:00)
[2023-03-22 10:31] LABS: BASOPHILS % (AUTO) 0.7 % (0.0-2.0); EOSINOPHILS % (AUTO) 0.8 % (1.0-6.0); HEMATOCRIT 40.9 % (41-53); HEMOGLOBIN 13.8 g/dL (13.5-17.5); LYMPHOCYTES # (AUTO) 1.1 K/uL (1.0-4.8); LYMPHOCYTES % (AUTO) 18.7 % (22.0-44.0); MEAN CORPUSCULAR HGB CONC 33.8 G/dL (31.0-37.0); MEAN CORPUSCULAR VOLUME 98 fL (80-100); MONOCYTES # (AUTO) 0.4 K/uL (0.1-1.0); MONOCYTES % (AUTO) 7.7 % (2.0-9.0); NEUTROPHILS # (AUTO) 4.2 K/uL (1.8-7.7); NEUTROPHILS % (AUTO) 72.1 % (40.0-70.0); PLATELET COUNT (AUTO) 256 K/uL (150-450); RED CELL DISTRIBUTION WIDTH 14.3 % (11.5-14.5); WHITE BLOOD COUNT (AUTO) 5.8 K/uL (4.5-11.0)
[2023-03-22 10:51] LABS: ANION GAP 5 mmol/L (8-16); CALCIUM, TOTAL 9.4 mg/dL (8.8-10.5); CARBON DIOXIDE 27 mmol/L (22-29); CHLORIDE 103 mmol/L (98-107); CREATININE 0.47 mg/dL (0.60-1.30); GLOMERULAR FILTR. RATE CALC > 60 mL/min (>60); GLUCOSE,RANDOM 100 mg/dL (70-110); POTASSIUM 3.8 mmol/L (3.5-5.1); SODIUM SERUM 135 mmol/L (136-145); UREA NITROGEN, BLOOD 13 mg/dL (7-18)
[2023-03-22 10:52] LABS: ALANINE AMINOTRANSFERASE 48 U/L (12-78); ALBUMIN 3.1 g/dL (3.4-5.0); ALKALINE PHOSPHATASE 128 U/L (46-116); ASPARTATE AMINOTRANSFERASE 40 U/L (15-37); BILIRUBIN,TOTAL 0.3 mg/dL (0.1-1.0); TOTAL PROTEIN, SERUM 8.4 g/dL (6.4-8.2); TROPONIN I-HIGH SENSITIVITY 7 ng/L (<76)
[2023-03-22 11:05] LABS: AMMONIA 26 umol/L (11-32)
[2023-03-22 11:10] LABS: APPEARANCE,URINE CLEAR (CLEAR); BILIRUBIN,URINE NEGATIVE (NEGATIVE); COLOR,URINE LIGHT YELLOW (YELLOW); GLUCOSE, URINE (UA) NEGATIVE (NEGATIVE); KETONES,URINE NEGATIVE (NEGATIVE); LEUKOCYTE ESTERASE ,URINE NEGATIVE (NEGATIVE); NITRATE,URINE NEGATIVE (NEGATIVE); OCCULT BLOOD,URINE NEGATIVE (NEGATIVE); PROTEIN,URINE NEGATIVE (NEGATIVE); UROBILINOGEN,URINE <=1.0 mg/dL (<=1.0)
[2023-03-22 11:16] LABS: ALCOHOL, URINE DRUG SCREEN NEGATIVE (NEGATIVE); AMPHET/METH SCREEN,URINE NEGATIVE (NEGATIVE); BARBITURATE SCREEN, URINE NEGATIVE (NEGATIVE); BENZODIAZEPINES SCREEN,URINE NEGATIVE (NEGATIVE); CANNABINOID SCREEN,URINE NEGATIVE (NEGATIVE); COCAINE SCREEN,URINE NEGATIVE (NEGATIVE); METHADONE SCREEN, URINE NEGATIVE (NEGATIVE); OPIATE SCREEN,URINE NEGATIVE (NEGATIVE); PHENCYCLIDINE SCREEN,URINE NEGATIVE (NEGATIVE)
[2023-03-22] MEDS ORDERED: LORazepam 2 MG/ML VIAL IVP ONE (12:15)
[2023-03-22 12:51] VITALS: BP 137/70; PULSE 82; RESP 16; TEMP 98.5
== END 2023-03-22 14:14 | disposition home or self-care (01) ==
LOC: EMS 09:47
DX: F20.9 Schizophrenia, unspecified (principal)
CPT/HCPCS: 99285; 96374; 70450; 71045; 96361; 80053; 82140; 84484; 85025; 36415; 93005; 80307; 81003; J2060

== ENCOUNTER → 2024-03-27 | Emergency (ER) | payer MEDICAID, OTHER ==
[~2024-03-27] VITALS: Ht 167.6 cm; Wt 73.0 kg
[~2024-03-27] MED LIST changes: -BENZ2TAB71 PO; +HALO100V36 IM; -HALO10TA21 PO; +MIRT-149 PO; -NALT50TA PO; +NALT50TA6 PO
[2024-03-27 06:54] VITALS: BP 140/79; PULSE 76; RESP 18; TEMP 98.1; O2SAT 97
[2024-03-27] MEDS: ACETAMINOPHEN 325 MG TABLET PO ONE (07:51)
== END | disposition still patient (30) ==
LOC: EMS 06:26
DX: M79.672 Pain in left foot (principal); M79.671 Pain in right foot; F20.9 Schizophrenia, unspecified
CPT/HCPCS: 99283

== ENCOUNTER 2024-09-25 17:05 | Emergency (ER) | payer OTHER ==
[~2024-09-25] VITALS: Ht 167.6 cm; Wt 68.2 kg
[2024-09-25 17:31] LABS: GLUCOMETER DEV NAME(LOC) ERT.6; GLUCOSE,POINT OF CARE 113 MG/DL (70-110)
[2024-09-25 18:17] VITALS: BP 128/72; PULSE 105; RESP 16; TEMP 98.3; O2SAT 96
[2024-09-25] MEDS ORDERED: DOXY100I IV (18:24)
[2024-09-25] MEDS: DOXYCYCLINE HYCLATE 100 MG TABLET PO ONE (18:34)
== END 2024-09-25 18:53 | disposition home or self-care (01) ==
LOC: EMS 17:05
DX: S81.011A Laceration without foreign body, right knee, initial encounter (principal); F20.9 Schizophrenia, unspecified; Z71.6 Tobacco abuse counseling; X58.XXXA Exposure to other specified factors, initial encounter; Y93.89 Activity, other specified; Y92.89 Other specified places as the place of occurrence of the external cause; Y99.8 Other external cause status
CPT/HCPCS: 82962; 99283